=== PATIENT | female | born 1970 | race Caucasian/White ===

== ENCOUNTER 2023-06-01 19:24 | Emergency (ER) | payer MEDICAID, OTHER ==
[~2023-06-01] VITALS: Ht 154.9 cm; Wt 107.1 kg
[2023-06-01 21:45] VITALS: BP 136/67; PULSE 60; RESP 18; TEMP 98; O2SAT 98
== END 2023-06-01 21:45 | disposition home or self-care (01) ==
LOC: ER 19:24
DX: S63.692A Other sprain of right middle finger, initial encounter (principal); X58.XXXA Exposure to other specified factors, initial encounter; Y93.89 Activity, other specified; Y92.89 Other specified places as the place of occurrence of the external cause; Y99.8 Other external cause status
CPT/HCPCS: 29130; 73140